=== PATIENT | female | born 1950 | race American Indian/Alaskan Native ===

== ENCOUNTER 2020-02-13 22:32 | Emergency (ER) | payer MEDICARE ==
--- NOTE | 2020-02-13 23:06 | Emergency Department Report ---
ED General Adult HPI - General Chief complaint: Altered Mental Status Stated complaint: AMS PUI?: No Time Seen by Provider: 02/13/20 22:51 Source: patient, EMS ( EMS documentation not available at time of chart dictation ), RN notes reviewed Mode of arrival: Stretcher Limitations: Other (Patient appears to be disorganized and is a poor historian) - History of Present Illness Initial comments: The patient was evaluated in the emergency department for symptoms described in the history of present illness. He/she was evaluated in the context of the global COVID-19 pandemic, which necessitated consideration that the patient mi ght be at risk for infection with the virus that causes COVID-19. Institutional protocols and algorithms that pertain to the evaluation of patients at risk for COVID-19 are in a state of rapid change based on information released by regulatory bodies including the CDC and federal and state organizations. These policies and algorithms were followed during the patient's care in the emergency department. Please note that these policies, procedures and recommendations changed on a rapid basis. Patient is a 69-year-old female. She is not known to myself previously. It appears that she has a history of hypertension and diabetes, as well as unspecified psychiatric conditions. She is brought to the hospital by emergency medical services as family reported that patient had "talking delusional x2 days." The patient herself has no recollection of this. The patient denies headache, chest pain, shortness of breath, homicidality, suicidality, urinary symptoms. She initially admitted on review of systems that she had nonspecific lower abdominal pain, but then changed her mind. The patient is a poor historian, she is not currently accompanied by friends or family at this time for additional information and collateral information. The patient is not able to describe the qualitative nature of her symptoms, exacerbating factors, relieving factors, radiation factors, or aggravating fac tors. -: days(s) Location: abdomen Severity scale (0 -10): 0 - Related Data Home Medications Medication Instructions Recorded Confirmed Last Taken ARIPiprazole 5 mg PO QDAY 02/13/20 02/13/20 Unknown Benztropine [Cogentin] 1 mg PO QDAY 02/13/20 02/13/20 Unknown Cholecalciferol (Vitamin D3) 5,000 unit PO QDAY 02/13/20 02/13/20 Unknown [Vitamin D3 5,000 UNIT] Escitalopram Oxalate [Lexapro] 20 mg PO QDAY 02/13/20 02/13/20 Unknown amLODIPine [Norvasc] 10 mg PO DAILY 02/13/20 02/13/20 Unknown cloNIDine [Catapres] 0.1 mg PO BID 02/13/20 02/13/20 Unknown clonazePAM [Klonopin] 1.5 mg PO QDAY 02/13/20 02/13/20 Unknown metFORMIN [Glucophage] 500 mg PO BID 02/13/20 02/13/20 Unknown traZODone [Desyrel] 100 mg PO QHS 02/13/20 02/13/20 Unknown Previous Rx's Medication Instructions Recorded Last Taken Type Methimazole [Tapazole] 10 mg PO QDAY #30 tab 02/14/20 Unknown Rx atenoloL [Tenormin] 25 mg PO DAILY #30 tab 02/14/20 Unknown Rx Allergies Allergy/AdvReac Type Severity Reaction Status Date / Time acetaminophen Allergy Itching Verified 12/22/12 00:42 [From Darvocet-N 100] diphenhydramine HCl Allergy Itching Verified 12/22/12 00:42 [From Benadryl] morphine Allergy Itching Verified 12/22/12 00:42 oxycodone HCl [From Percocet] Allergy Itching Verified 12/22/12 00:42 prochlorperazine edisylate Allergy Unknown Verified 12/22/12 00:43 [From Compazine] prochlorperazine maleate Allergy Unknown Verified 12/22/12 00:43 [From Compazine] propoxyphene napsylate Allergy Itching Verified 12/22/12 00:42 [From Darvocet-N 100] ED Review of Systems ROS: Stated complaint: AMS Other details as noted in HPI Comment: Unobtainable due to pts medical conditions Cardiovascular: denies: chest pain Gastrointestinal: abdominal pain Neurological: confusion ED Past Medical Hx - Past Medical History Hx Hypertension: Yes Hx Diabetes: Yes Additional medical history: Back surgery - Social History Smoking Status: Former Smoker Substance Use Type: None - Medications Home Medications: Home Medications Medication Instructions Recorded Confirmed Last Taken Type ARIPiprazole 5 mg PO QDAY 02/13/20 02/13/20 Unknown History Benztropine [Cogentin] 1 mg PO QDAY 02/13/20 02/13/20 Unknown History Cholecalciferol (Vitamin D3) 5,000 unit PO QDAY 02/13/20 02/13/20 Unknown History [Vitamin D3 5,000 UNIT] Escitalopram Oxalate [Lexapro] 20 mg PO QDAY 02/13/20 02/13/20 Unknown History amLODIPine [Norvasc] 10 mg PO DAILY 02/13/20 02/13/20 Unknown History cloNIDine [Catapres] 0.1 mg PO BID 02/13/20 02/13/20 Unknown History clonazePAM [Klonopin] 1.5 mg PO QDAY 02/13/20 02/13/20 Unknown History metFORMIN [Glucophage] 500 mg PO BID 02/13/20 02/13/20 Unknown History traZODone [Desyrel] 100 mg PO QHS 02/13/20 02/13/20 Unknown History Methimazole [Tapazole] 10 mg PO QDAY #30 tab 02/14/20 Unknown Rx atenoloL [Tenormin] 25 mg PO DAILY #30 tab 02/14/20 Unknown Rx ED Physical Exam - General Limitations: Other (Disorganized behavior) General appearance: alert, in no apparent distress - Head Head exam: Present: atraumatic, normocephalic - Eye Eye exam: Present: normal appearance, EOMI. Absent: nystagmus - ENT ENT exam: Present: normal exam, normal orophraynx, mucous membranes moist, normal external ear exam - Neck Neck exam: Present: normal inspection, full ROM. Absent: tenderness, meningismus - Respiratory Respiratory exam: Present: normal lung sounds bilaterally. Absent: respiratory distress, wheezes, rales, rhonchi, stridor, decreased breath sounds - Cardiovascular Cardiovascular Exam: Present: regular rate, normal rhythm, normal heart sounds. Absent: bradycardia, tachycardia, irregular rhythm, systolic murmur, diastolic murmur, rubs, gallop - GI/Abdominal GI/Abdominal exam: Present: soft. Absent: distended, tenderness, guarding, rebound, rigid, pulsatile mass - Extremities Exam Extremities exam: Present: normal inspection, full ROM, other (2+ pulses noted in the bilateral upper and lower extremities. There is no palpable cord. negative Homans sign. Muscular compartments are soft. The pelvis is stable.). Absent: pedal edema, calf tenderness - Back Exam Back exam: Present: normal inspection, full ROM. Absent: tenderness, CVA tenderness (R), CVA tenderness (L), paraspinal tenderness, vertebral tenderness - Neurological Exam Neurological exam: Present: altered (Patient is awake to name. She is able to give her location. She does not know the month. She does not know the year.), other (No facial droop. Tongue midline. Extraocular movements intact bilaterally. Facial sensation intact to light touch in V1, V2, V3 distribution bilaterally. 5 and a 5 strength in 4 extremities. Sensation intact to light touch in 4 extremities.) - Psychiatric Psychiatric exam: Present: flat affect - Skin Skin exam: Present: warm, dry, intact, normal color. Absent: rash ED Course Vital Signs 02/13/20 02/13/20 02/13/20 22:49 22:56 23:06 Temperature 97.7 F 97.7 F Pulse Rate 65 67 Respiratory 18 Rate Blood Pressure Blood Pressure 156/57 [Right] O2 Sat by Pulse 99 Oximetry 02/13/20 02/13/20 02/13/20 23:16 23:22 23:30 Temperature Pulse Rate 67 74 Respiratory 13 18 16 Rate Blood Pressure 178/124 178/124 Blood Pressure [Right] O2 Sat by Pulse 80 L 99 83 L Oximetry 02/13/20 02/14/20 02/14/20 23:32 00:00 00:50 Temperature Pulse Rate 79 71 70 Respiratory 14 10 L Rate Blood Pressure 178/124 185/98 185/98 Blood Pressure [Right] O2 Sat by Pulse 91 100 Oximetry 02/14/20 02/14/20 02/14/20 02:00 02:51 03:00 Temperature Pulse Rate 72 69 70 Respiratory 20 13 Rate Blood Pressure 189/96 167/91 167/91 Blood Pressure [Right] O2 Sat by Pulse 97 93 Oximetry 02/14/20 02/14/20 02/14/20 04:00 05:41 06:46 Temperature Pulse Rate 66 69 58 L Respiratory 17 14 14 Rate Blood Pressure 177/101 Blood Pressure 153/81 153/66 [Right] O2 Sat by Pulse 92 97 97 Oximetry 02/14/20 02/14/20 02/14/20 14:40 15:22 16:00 Temperature Pulse Rate 98 H Respiratory Rate Blood Pressure 142/82 Blood Pressure [Right] O2 Sat by Pulse 77 L 77 L Oximetry 02/14/20 02/14/20 02/14/20 17:00 18:00 19:00 Temperature Pulse Rate 59 L 62 64 Respiratory 14 22 15 Rate Blood Pressure 145/73 Blood Pressure [Right] O2 Sat by Pulse 98 98 99 Oximetry - Reevaluation(s) Reevaluation #1: 02/14/20 00:33 Differential diagnosis, including but not limited to: Polypharmacy, pneumonia, urinary tract infection, intra-abdominal infection, disorganized behavior, psychosis, dementia Assessment and plan: 69-year-old female, who was afebrile, with reassuring vital signs, moving 4 extremities, protecting her airway, with illogical thought process. Suspect polypharmacy versus underlying psychiatric exacerbation, versus dementia. Check CT scan of the brain, abdomen pelvis, x-ray of the chest, appropriate laboratory studies, urinalysis, and EKG. Obtain psychiatric consultation. No facial droop, no lateralizing deficits, 5 out of 5 strength in 4 extremities, without sensory loss. Very low suspicion for CVA Reevaluation #2: 02/14/20 00:34 And my examination directly, the patient is not hypoxic. She is saturating well on room air. Documented irregularities on pulse ox are likely artifact/machine error. Reevaluation #3: 02/14/20 01:11 Zaldivar-Wartofsky Point Scale (BWPS) for Thyrotoxicosis 10 points Unlikely to represent thyroid storm 02/14/20 01:53 T4 elevated, TSH quite low. Suspicious for hyperthyroidism. Patient's presentation at this time does not appear to be consistent with thyroid storm, or extreme thyrotoxicosis. Contacted my hospital physician, Dr. Liana Gaytan, and we discussed the patient's history, physical, pertinent laboratory studies and diagnostic studies. We are both in agreement that at this time, patient does not meet criteria for inpatient hospitalization. We will initiate methimazole, and atenolol. We will withhold clonidine at this time. From a hyperthyroidism standpoint, would consider the patient suitable for discharge with close outpatient management/follow-up. Mental health consultation pending at this time, to determine if patient will benefit from psychiatric medication adjustments. At this point time, patient does not appear to have a medical condition that would require hospitalization at this time. If the psychiatric team is of the opinion that she would not benefit from in-house psychiatric care, would discharge with atenolol, methimazole, discontinuation of clonidine, and close outpatient follow-up with a primary care doctor. 02/14/20 01:56 ED Medical Decision Making - Lab Data Result diagrams: 02/13/20 23:55 02/13/20 23:55 Vital Signs 02/13/20 02/13/20 02/13/20 22:49 23:06 23:16 Temperature 97.7 F 97.7 F Pulse Rate 65 67 Respiratory 18 13 Rate Blood Pressure 178/124 Blood Pressure 156/57 [Right] O2 Sat by Pulse 99 80 L Oximetry 02/13/20 02/13/20 23:22 23:30 Temperature Pulse Rate 74 Respiratory 18 16 Rate Blood Pressure 178/124 Blood Pressure [Right] O2 Sat by Pulse 99 83 L Oximetry Lab Results 02/13/20 02/13/20 02/13/20 Range/Units 23:03 23:03 23:55 WBC (4.5-11.0) K/mm3 RBC (3.65-5.03) M/mm3 Hgb (10.1-14.3) gm/dl Hct (30.3-42.9) % MCV (79-97) fl MCH (28-32) pg MCHC (30-34) % RDW (13.2-15.2) % Plt Count (140-440) K/mm3 PT (12.2-14.9) Sec. INR (0.87-1.13) Lactic Acid 1.20 (0.7-2.0) mmol/L Urine Color Colorless (Yellow) Urine Turbidity Clear (Clear) Urine pH 6.0 (5.0-7.0) Ur Specific Franklin 1.005 (1.003-1.030) Urine Protein <15 mg/dl (Negative) mg/dL Urine Glucose (UA) Neg (Negative) mg/dL Urine Ketones Neg (Negative) mg/dL Urine Blood Sm (Negative) Urine Nitrite Neg (Negative) Urine Bilirubin Neg (Negative) Urine Urobilinogen < 2.0 (<2.0) mg/dL Ur Leukocyte Esterase Tr (Negative) Urine WBC (Auto) 1.0 (0.0-6.0) /HPF Urine RBC (Auto) 3.0 (0.0-6.0) /HPF U Epithel Cells (Auto) < 1.0 (0-13.0) /HPF Urine Bacteria (Auto) 1+ (Negative) /HPF Urine Opiates Screen Presumptive negative Urine Methadone Screen Presumptive negative Ur Barbiturates Screen Presumptive negative Ur Phencyclidine Scrn Presumptive negative Ur Amphetamines Screen Presumptive negative U Benzodiazepines Scrn Presumptive negative Urine Cocaine Screen Presumptive negative U Marijuana (THC) Screen Presumptive negative Drugs of Abuse Note Disclamer 02/13/20 02/13/20 Range/Units 23:55 23:55 WBC 5.8 (4.5-11.0) K/mm3 RBC 4.21 (3.65-5.03) M/mm3 Hgb 12.2 (10.1-14.3) gm/dl Hct 35.5 (30.3-42.9) % MCV 84 (79-97) fl MCH 29 (28-32) pg MCHC 34 (30-34) % RDW 13.8 (13.2-15.2) % Plt Count 217 (140-440) K/mm3 PT 14.1 (12.2-14.9) Sec. INR 1.08 (0.87-1.13) Lactic Acid (0.7-2.0) mmol/L Urine Color (Yellow) Urine Turbidity (Clear) Urine pH (5.0-7.0) Ur Specific Franklin (1.003-1.030) Urine Protein (Negative) mg/dL Urine Glucose (UA) (Negative) mg/dL Urine Ketones (Negative) mg/dL Urine Blood (Negative) Urine Nitrite (Negative) Urine Bilirubin (Negative) Urine Urobilinogen (<2.0) mg/dL Ur Leukocyte Esterase (Negative) Urine WBC (Auto) (0.0-6.0) /HPF Urine RBC (Auto) (0.0-6.0) /HPF U Epithel Cells (Auto) (0-13.0) /HPF Urine Bacteria (Auto) (Negative) /HPF Urine Opiates Screen Urine Methadone Screen Ur Barbiturates Screen Ur Phencyclidine Scrn Ur Amphetamines Screen U Benzodiazepines Scrn Urine Cocaine Screen U Marijuana (THC) Screen Drugs of Abuse Note Lab Results 02/13/20 02/13/20 02/13/20 Range/Units 23:03 23:03 23:55 WBC (4.5-11.0) K/mm3 RBC (3.65-5.03) M/mm3 Hgb (10.1-14.3) gm/dl Hct (30.3-42.9) % MCV (79-97) fl MCH (28-32) pg MCHC (30-34) % RDW (13.2-15.2) % Plt Count (140-440) K/mm3 PT (12.2-14.9) Sec. INR (0.87-1.13) Sodium (137-145) mmol/L Potassium (3.6-5.0) mmol/L Chloride (98-107) mmol/L Carbon Dioxide (22-30) mmol/L Anion Gap mmol/L BUN (7-17) mg/dL Creatinine (0.6-1.2) mg/dL Estimated GFR ml/min BUN/Creatinine Ratio % Glucose (65-100) mg/dL Lactic Acid 1.20 (0.7-2.0) mmol/L Calcium (8.4-10.2) mg/dL Magnesium (1.7-2.3) mg/dL Total Bilirubin (0.1-1.2) mg/dL AST (5-40) units/L ALT (7-56) units/L Alkaline Phosphatase (35-129) units/L Ammonia (25-60) umol/L Total Creatine Kinase (30-135) units/L Troponin T (0.00-0.029) ng/mL Total Protein (6.3-8.2) g/dL Albumin (3.9-5) g/dL Albumin/Globulin Ratio % TSH (0.270-4.200) mlU/mL Urine Color Colorless (Yellow) Urine Turbidity Clear (Clear) Urine pH 6.0 (5.0-7.0) Ur Specific Franklin 1.005 (1.003-1.030) Urine Protein <15 mg/dl (Negative) mg/dL Urine Glucose (UA) Neg (Negative) mg/dL Urine Ketones Neg (Negative) mg/dL Urine Blood Sm (Negative) Urine Nitrite Neg (Negative) Urine Bilirubin Neg (Negative) Urine Urobilinogen < 2.0 (<2.0) mg/dL Ur Leukocyte Esterase Tr (Negative) Urine WBC (Auto) 1.0 (0.0-6.0) /HPF Urine RBC (Auto) 3.0 (0.0-6.0) /HPF U Epithel Cells (Auto) < 1.0 (0-13.0) /HPF Urine Bacteria (Auto) 1+ (Negative) /HPF Salicylates (2.8-20.0) mg/dL Urine Opiates Screen Presumptive negative Urine Methadone Screen Presumptive negative Acetaminophen (10.0-30.0) ug/mL Ur Barbiturates Screen Presumptive negative Ur Phencyclidine Scrn Presumptive negative Ur Amphetamines Screen Presumptive negative U Benzodiazepines Scrn Presumptive negative Urine Cocaine Screen Presumptive negative U Marijuana (THC) Screen Presumptive negative Drugs of Abuse Note Disclamer Plasma/Serum Alcohol (0-0.07) % 02/13/20 02/13/20 02/13/20 Range/Units 23:55 23:55 23:55 WBC 5.8 (4.5-11.0) K/mm3 RBC 4.21 (3.65-5.03) M/mm3 Hgb 12.2 (10.1-14.3) gm/dl Hct 35.5 (30.3-42.9) % MCV 84 (79-97) fl MCH 29 (28-32) pg MCHC 34 (30-34) % RDW 13.8 (13.2-15.2) % Plt Count 217 (140-440) K/mm3 PT 14.1 (12.2-14.9) Sec. INR 1.08 (0.87-1.13) Sodium 139 (137-145) mmol/L Potassium 3.8 (3.6-5.0) mmol/L Chloride 102.7 (98-107) mmol/L Carbon Dioxide 20 L (22-30) mmol/L Anion Gap 20 mmol/L BUN 25 H (7-17) mg/dL Creatinine 1.1 (0.6-1.2) mg/dL Estimated GFR 60 ml/min BUN/Creatinine Ratio 23 % Glucose 84 (65-100) mg/dL Lactic Acid (0.7-2.0) mmol/L Calcium 10.7 H (8.4-10.2) mg/dL Magnesium 1.90 (1.7-2.3) mg/dL Total Bilirubin 0.40 (0.1-1.2) mg/dL AST 24 (5-40) units/L ALT 14 (7-56) units/L Alkaline Phosphatase 81 (35-129) units/L Ammonia (25-60) umol/L Total Creatine Kinase 490 H (30-135) units/L Troponin T < 0.010 (0.00-0.029) ng/mL Total Protein 7.4 (6.3-8.2) g/dL Albumin 4.1 (3.9-5) g/dL Albumin/Globulin Ratio 1.2 % TSH (0.270-4.200) mlU/mL Urine Color (Yellow) Urine Turbidity (Clear) Urine pH (5.0-7.0) Ur Specific Franklin (1.003-1.030) Urine Protein (Negative) mg/dL Urine Glucose (UA) (Negative) mg/dL Urine Ketones (Negative) mg/dL Urine Blood (Negative) Urine Nitrite (Negative) Urine Bilirubin (Negative) Urine Urobilinogen (<2.0) mg/dL Ur Leukocyte Esterase (Negative) Urine WBC (Auto) (0.0-6.0) /HPF Urine RBC (Auto) (0.0-6.0) /HPF U Epithel Cells (Auto) (0-13.0) /HPF Urine Bacteria (Auto) (Negative) /HPF Salicylates (2.8-20.0) mg/dL Urine Opiates Screen Urine Methadone Screen Acetaminophen (10.0-30.0) ug/mL Ur Barbiturates Screen Ur Phencyclidine Scrn Ur Amphetamines Screen U Benzodiazepines Scrn Urine Cocaine Screen U Marijuana (THC) Screen Drugs of Abuse Note Plasma/Serum Alcohol (0-0.07) % 02/13/20 02/13/20 02/13/20 Range/Units 23:55 23:55 23:55 WBC (4.5-11.0) K/mm3 RBC (3.65-5.03) M/mm3 Hgb (10.1-14.3) gm/dl Hct (30.3-42.9) % MCV (79-97) fl MCH (28-32) pg MCHC (30-34) % RDW (13.2-15.2) % Plt Count (140-440) K/mm3 PT (12.2-14.9) Sec. INR (0.87-1.13) Sodium (137-145) mmol/L Potassium (3.6-5.0) mmol/L Chloride (98-107) mmol/L Carbon Dioxide (22-30) mmol/L Anion Gap mmol/L BUN (7-17) mg/dL Creatinine (0.6-1.2) mg/dL Estimated GFR ml/min BUN/Creatinine Ratio % Glucose (65-100) mg/dL Lactic Acid (0.7-2.0) mmol/L Calcium (8.4-10.2) mg/dL Magnesium (1.7-2.3) mg/dL Total Bilirubin (0.1-1.2) mg/dL AST (5-40) units/L ALT (7-56) units/L Alkaline Phosphatase (35-129) units/L Ammonia 23.0 L (25-60) umol/L Total Creatine Kinase (30-135) units/L Troponin T (0.00-0.029) ng/mL Total Protein (6.3-8.2) g/dL Albumin (3.9-5) g/dL Albumin/Globulin Ratio % TSH < 0.005 L (0.270-4.200) mlU/mL Urine Color (Yellow) Urine Turbidity (Clear) Urine pH (5.0-7.0) Ur Specific Franklin (1.003-1.030) Urine Protein (Negative) mg/dL Urine Glucose (UA) (Negative) mg/dL Urine Ketones (Negative) mg/dL Urine Blood (Negative) Urine Nitrite (Negative) Urine Bilirubin (Negative) Urine Urobilinogen (<2.0) mg/dL Ur Leukocyte Esterase (Negative) Urine WBC (Auto) (0.0-6.0) /HPF Urine RBC (Auto) (0.0-6.0) /HPF U Epithel Cells (Auto) (0-13.0) /HPF Urine Bacteria (Auto) (Negative) /HPF Salicylates < 0.3 L (2.8-20.0) mg/dL Urine Opiates Screen Urine Methadone Screen Acetaminophen (10.0-30.0) ug/mL Ur Barbiturates Screen Ur Phencyclidine Scrn Ur Amphetamines Screen U Benzodiazepines Scrn Urine Cocaine Screen U Marijuana (THC) Screen Drugs of Abuse Note Plasma/Serum Alcohol (0-0.07) % 02/13/20 02/13/20 Range/Units 23:55 23:55 WBC (4.5-11.0) K/mm3 RBC (3.65-5.03) M/mm3 Hgb (10.1-14.3) gm/dl Hct (30.3-42.9) % MCV (79-97) fl MCH (28-32) pg MCHC (30-34) % RDW (13.2-15.2) % Plt Count (140-440) K/mm3 PT (12.2-14.9) Sec. INR (0.87-1.13) Sodium (137-145) mmol/L Potassium (3.6-5.0) mmol/L Chloride (98-107) mmol/L Carbon Dioxide (22-30) mmol/L Anion Gap mmol/L BUN (7-17) mg/dL Creatinine (0.6-1.2) mg/dL Estimated GFR ml/min BUN/Creatinine Ratio % Glucose (65-100) mg/dL Lactic Acid (0.7-2.0) mmol/L Calcium (8.4-10.2) mg/dL Magnesium (1.7-2.3) mg/dL Total Bilirubin (0.1-1.2) mg/dL AST (5-40) units/L ALT (7-56) units/L Alkaline Phosphatase (35-129) units/L Ammonia (25-60) umol/L Total Creatine Kinase (30-135) units/L Troponin T (0.00-0.029) ng/mL Total Protein (6.3-8.2) g/dL Albumin (3.9-5) g/dL Albumin/Globulin Ratio % TSH (0.270-4.200) mlU/mL Urine Color (Yellow) Urine Turbidity (Clear) Urine pH (5.0-7.0) Ur Specific Franklin (1.003-1.030) Urine Protein (Negative) mg/dL Urine Glucose (UA) (Negative) mg/dL Urine Ketones (Negative) mg/dL Urine Blood (Negative) Urine Nitrite (Negative) Urine Bilirubin (Negative) Urine Urobilinogen (<2.0) mg/dL Ur Leukocyte Esterase (Negative) Urine WBC (Auto) (0.0-6.0) /HPF Urine RBC (Auto) (0.0-6.0) /HPF U Epithel Cells (Auto) (0-13.0) /HPF Urine Bacteria (Auto) (Negative) /HPF Salicylates (2.8-20.0) mg/dL Urine Opiates Screen Urine Methadone Screen Acetaminophen 5.0 L (10.0-30.0) ug/mL Ur Barbiturates Screen Ur Phencyclidine Scrn Ur Amphetamines Screen U Benzodiazepines Scrn Urine Cocaine Screen U Marijuana (THC) Screen Drugs of Abuse Note Plasma/Serum Alcohol < 0.01 (0-0.07) % - EKG Data -: EKG Interpreted by Me - EKG Data When compared to previous EKG there are: previous EKG unavailable 02/14/20 00:35 Sinus rhythm, 67 bpm, normal axis, normal intervals, left ventricular hypertrophy, motion artifact V3. Abnormal EKG. Not a STEMI. No prior for comparison. - Radiology Data Radiology results: pending, report reviewed, image reviewed Print Report Referring Physician: LYDIA CONNORS Patient Name: MINAL GARCIA Date of : 1950 Sex: Female Report Date: 2020-02-13 Report Status: Finalized Findings [address] [address] XRay Report Signed Patient: MINAL GARCIA MR#: [id number] : 1950 Acct:[id number] Age/Sex: 69 / F ADM Date: 02/13/20 Loc: ED Attending Dr: Ordering Physician: LYDIA CONNORS MD Date of Service: 02/13/20 Procedure(s): XR chest 1V ap Accession Number(s): [id number] cc: LYDIA CONNORS MD Fluoro Time In Minutes: CHEST 1 VIEW 11:03 PM INDICATION / CLINICAL INFORMATION: Altered Mental Status. COMPARISON: None available. FINDINGS: SUPPORT DEVICES: None. HEART / MEDIASTINUM: The heart size and pulmonary vasculature are normal. The aorta is normal in caliber. LUNGS / PLEURA: No significant pulmonary or pleural abnormality. No pneumothorax. ADDITIONAL FINDINGS: There is a chronic rotator cuff tear on the right. There are also surgical changes involving the right humeral head. There is an old unhealed fracture of the left clavicle. IMPRESSION: No acute findings. Signer Name: Guy Barnett MD Signed: 02/13/2020 11:36 PM Workstation Name: [id number] Transcribed By: RT Dictated By: Guy Barnett MD Electronically Authenticated By: Guy Barnett MD Signed Date/Time: 02/13/202335 DD/ 33 TD/TT: Print Report Referring Physician: LYDIA CONNORS Patient Name: MINAL GARCIA Date of : 1950 Sex: Female Report Date: 2020-02-14 Report Status: Finalized Findings [facility] [address] [place] [address] Cat Scan Report Signed Patient: MINAL GARCIA MR#: [id number] : 1950 Acct:[id number] Age/Sex: 69 / F ADM Date: 02/13/20 Loc: ED Attending Dr: Ordering Physician: LYDIA CONNORS MD Date of Service: 02/13/20 Procedure(s): CT abdomen pelvis wo con Accession Number(s): [id number] cc: LYDIA CONNORS MD CT OF THE ABDOMEN AND PELVIS WITHOUT CONTRAST INDICATION / CLINICAL INFORMATION: Lower abdominal pain. TECHNIQUE: All CT scans at this location are performed using CT dose reduction for ALARA by means of automated exposure control. COMPARISON: None available. FINDINGS: ABDOMEN: There are multiple small calcified stones in the gallbladder. The gallbladder is normal in size without wall thickening or bile duct dilatation. The liver, spleen, pancreas, kidneys and bowel demonstrate no significant abnormality. There is mild benign-appearing low density nodularity/hyperplasia of both adrenal glands. No adenopathy is seen. There is mild patchy parenchymal disease in the right lung base posteriorly. No pleural effusion. The left lung base is clear. PELVIS: There is internal fixation of the lower lumbar spine causing streak artifact. The distal ureters and urinary bladder are normal. There are a few tiny calcified uterine fibroids. There is no evidence of adnexal mass or free fluid. A normal appendix is present and there is no evidence of diverticulitis. I do not identify a hernia. There are moderate degenerative changes involving the spine and right SI joint. There are also moderate degenerative changes involving the right hip. IMPRESSION: 1. Cholelithiasis without CT evidence of acute cholecystitis. 2. Mild parenchymal disease in the right posterior lung base is more likely related to atelectasis than pneumonia. Signer Name: Guy Barnett MD Signed: 02/14/2020 12:51 AM Workstation Name: [id number] Transcribed By: RT Dictated By: Guy Barnett MD Electronically Authenticated By: Guy Barnett MD Signed Date/Time: 02/14/2050 DD/ TD/TT: Print Report Referring Physician: LYDIA CONNORS Patient Name: MINAL GARCIA Date of : 1950 Sex: Female Report Date: 2020-02-14 Report Status: Finalized Findings [facility] [address] [place] [address] Cat Scan Report Signed Patient: MINAL GARCIA MR#: [id number] : 1950 Acct:[id number] Age/Sex: 69 / F ADM Date: 02/13/20 Loc: ED Attending Dr: Ordering Physician: LYDIA CONNORS MD Date of Service: 02/13/20 Procedure(s): CT head/brain wo con Accession Number(s): [id number] cc: LYDIA CONNORS MD CT HEAD/BRAIN WO CON INDICATION / CLINICAL INFORMATION: Change in patient's behaviour. Altered mental status. TECHNIQUE: All CT scans at this location are performed using CT dose reduction for ALARA by means of automated exposure control. COMPARISON: None available. FINDINGS: There is mild generalized cerebral and cerebellar atrophy. No focal lesion or mass effect is seen. There is no evidence of intracranial hemorrhage or major vessel occlusion. The calvari um is intact. The visualized paranasal sinuses and mastoid air cells are clear. IMPRESSION: No acute abnormality. Signer Name: Guy Barnett MD Signed: 02/14/2020 12:45 AM Workstation Name: [id number] Transcribed By: RT Dictated By: Guy Barnett MD Electronically Authenticated By: Guy Barnett MD Signed Date/Time: 02/14/2044 DD/ TD/TT: Critical care attestation.: If time is entered above; I have spent that time in minutes in the direct care of this critically ill patient, excluding procedure time. ED Disposition Clinical Impression: General medical examination, Elevated blood pressure reading, History of abdominal pain, Hyperthyroidism Disposition: DC-01 TO HOME OR SELFCARE Is pt being admited?: No Does the pt Need Aspirin: No Condition: Stable Additional Instructions: OUTPATIENT MENTAL HEALTH RESOURCES [facility], [facility] Santo Ruano MD: [address] [place] [address] [place] [address] [place] [facility]: [facility] [address] [place] [address] [place] [address] [phone] [facility]: [facility] Healthcare: [address] [place] [address] [facility] [id number] [facility]: Lonnie Garcia MD: [address] [facility] [address] [facility] [id number] [facility]: [address] [place], [place] [id number] [phone] [place] CRISIS AND ACCESS LINE: Prescriptions: Methimazole [Tapazole] 10 mg PO QDAY #30 tab atenoloL [Tenormin] 25 mg PO DAILY #30 tab Referrals: PRIMARY CARE, [Primary Care Provider] - 3-5 Days
[2020-02-13 23:38] LABS: Amphetamine Screen,Urine PRESUMPTIVE NEGATIVE; Benzodiazepines Screen,Urine PRESUMPTIVE NEGATIVE; Cannabinoid Screen,Urine PRESUMPTIVE NEGATIVE; Cocaine Screen,Urine PRESUMPTIVE NEGATIVE; Methadone Screen,Urine PRESUMPTIVE NEGATIVE; Opiate Screen,Urine PRESUMPTIVE NEGATIVE
--- NOTE | 2020-02-13 23:40 | XRay Report ---
CHEST 1 VIEW 11:03 PM INDICATION / CLINICAL INFORMATION: Altered Mental Status. COMPARISON: None available. FINDINGS: SUPPORT DEVICES: None. HEART / MEDIASTINUM: The heart size and pulmonary vasculature are normal. The aorta is normal in anderson shel[place]. LUNGS / PLEURA: No significant pulmonary or pleural abnormality. No pneumothorax. ADDITIONAL FINDINGS: There is a chronic rotator cuff tear on the right. There are also surgical landaverde es involving the right humeral head. There is an old unhealed fracture of the left clavicle. IMPRESSION: No acute findings. Signer Name: Guy Barnett MD Signed: 02/13/2020 11:36 PM Workstation Name: [id number]
[2020-02-13 23:46] LABS: Bacteria,Urine 1+ /HPF (Negative); Bilirubin,Urine NEG (Negative); Blood,Urine SM (Negative); Color,Urine Colorless (Yellow); Protein,Urine <15 mg/dL mg/dL (Negative); Urobilinogen,Urine < 2.0 mg/dL (<2.0)
[2020-02-14 00:20] LABS: Hematocrit 35.5 % (30.3-42.9); Hemoglobin 12.2 gm/dl (10.1-14.3); Mean Corpuscular HGB Conc 34 % (30-34); Mean Corpuscular Volume 84 fl (79-97); Platelet Count 217 K/mm3 (140-440); Red Blood Count 4.21 M/mm3 (3.65-5.03); Red Cell Distribution Width 13.8 % (13.2-15.2)
[2020-02-14 00:31] LABS: INR 1.08 (0.87-1.13)
[2020-02-14 00:45] LABS: Alanine Aminotransferase 14 units/L (7-56); Albumin 4.1 g/dL (3.9-5); BUN/Creatinine Ratio 23; Blood Urea Nitrogen 25 mg/dL (7-17); Calcium 10.7 mg/dL (8.4-10.2); Hemolysis Index 19
[2020-02-14] MEDS ORDERED: cloNIDine 0.1 MG TAB PO ONE (00:45)
[2020-02-14] MEDS ORDERED: amLODIPine 5 MG TAB PO ONE (00:45)
--- NOTE | 2020-02-14 00:50 | Cat Scan Report ---
CT HEAD/BRAIN WO CON INDICATION / CLINICAL INFORMATION: Change in patient's behaviour. Altered mental status. TECHNIQUE: All CT scans at this location are performed using CT dose reduction for ALARA by means of automated e xposure control. COMPARISON: None available. FINDINGS: There is mild generalized cerebral and cerebellar atrophy. No focal lesion or mass effect is seen. Th ere is no evidence of intracranial hemorrhage or major vessel occlusion. The calvarium is intact. The visualized paranasal sinuses and mastoid air cells are clear. IMPRESSION: No acute abnormality. Signer Name: Guy Barnett MD Signed: 02/14/2020 12:45 AM Workstation Name: [id number]
--- NOTE | 2020-02-14 00:56 | Cat Scan Report ---
CT OF THE ABDOMEN AND PELVIS WITHOUT CONTRAST INDICATION / CLINICAL INFORMATION: Lower abdominal pain. TECHNIQUE: All CT scans at this location are performed using CT dose reduction for ALARA by means of automated e xposure control. COMPARISON: None available. FINDINGS: ABDOMEN: There are multiple small calcified stones in the gallbladder. The gallbladder is normal in s ize without wall thickening or bile duct dilatation. The liver, spleen, pancreas, kidneys and bowel d emonstrate no significant abnormality. There is mild benign-appearing low density nodularity/hyperpla spring of both adrenal glands. No adenopathy is seen. There is mild patchy parenchymal disease in the ri ght lung base posteriorly. No pleural effusion. The left lung base is clear. PELVIS: There is internal fixation of the lower lumbar spine causing streak artifact. The distal uret ers and urinary bladder are normal. There are a few tiny calcified uterine fibroids. There is no evid ence of adnexal mass or free fluid. A normal appendix is present and there is no evidence of divertic ulitis. I do not identify a hernia. There are moderate degenerative changes involving the spine and r ight SI joint. There are also moderate degenerative changes involving the right hip. IMPRESSION: 1. Cholelithiasis without CT evidence of acute cholecystitis. 2. Mild parenchymal disease in the right posterior lung base is more likely related to atelectasis th an pneumonia. Signer Name: Guy Barnett MD Signed: 02/14/2020 12:51 AM Workstation Name: [id number]
[2020-02-14] MEDS ORDERED: methIMAzole 5 MG TAB PO STA (01:49)
[2020-02-14] MEDS ORDERED: atenoloL 25 MG TAB PO ONE ×2 (01:49→01:52)
[2020-02-14] MEDS ORDERED: metFORMIN 500 MG TAB PO SCH (08:00)
[2020-02-14] MEDS ORDERED: cloNIDine 0.1 MG TAB PO SCH (10:00)
[2020-02-14] MEDS ORDERED: amLODIPine 10 MG TAB PO SCH (10:00)
[2020-02-14] MEDS ORDERED: CHOLECALCIFEROL 5000 UNIT PO SCH (10:00)
[2020-02-14] MEDS ORDERED: methIMAzole 5 MG TAB PO SCH (10:00)
[2020-02-14] MEDS ORDERED: CHOLECALCIFEROL (VIT D3) 5,000 UNIT TAB PO SCH (10:00)
[2020-02-14] MEDS ORDERED: ENOXAPARIN 40 MG/0.4 ML INJ SUB-Q ONE (10:03)
[2020-02-14] MEDS ORDERED: predniSONE 20 MG TAB ONE (10:07)
[2020-02-14 19:19] VITALS: BP 145/73
== END 2020-02-14 20:45 | disposition home or self-care (01) ==
LOC: ED 22:32
DX: E05.90 Thyrotoxicosis, unspecified without thyrotoxic crisis or storm (principal); R10.84 Generalized abdominal pain; Z20.828 Contact with and (suspected) exposure to other viral communicable diseases; Z00.00 Encounter for general adult medical examination without abnormal findings; I10 Essential (primary) hypertension; E11.9 Type 2 diabetes mellitus without complications; Z87.891 Personal history of nicotine dependence; Z79.84 Long term (current) use of oral hypoglycemic drugs; Z79.899 Other long term (current) drug therapy; Z88.8 Allergy status to other drugs, medicaments and biological substances
CPT/HCPCS: 36415; 70450; 71045; 74176; 80053; 80307; 81001; 82140; 82550; 82962; 83735; 84439; 84443; 84484; 85027; 85610; 87086; 93005; 99285; U0003; 80320; G0480; J1650; J7512